=== PATIENT | male | born 1995 | race Caucasian/White ===

== ENCOUNTER → 2022-05-24 10:56 | Outpatient (BNVA) | payer OTHER, SELFPAY | PROVIDERS: Visit Provider Physician Assistant Medical | DX: T63.481A Toxic effect of venom of other arthropod, accidental (unintentional), initial encounter (principal) | CPT/HCPCS: 99203 ==

== ENCOUNTER 2022-05-24 12:25 | Emergency (ER) | payer OTHER, SELFPAY ==
[2022-05-24 12:36] VITALS: BP 143/92; PULSE 76; RESP 18; TEMP 36.9; O2SAT 98; BMI 44.6
--- NOTE | 2022-05-24 15:13 | PC.NURSE ---
pt approached this RN stating I feel like my finger is going to explode or something . Finger is swollen, but mild to moderately. Color is light pink. Provider (Edy SHAH) aware.
--- NOTE | 2022-05-24 16:36 | ED.GENADULT ---
HPI - General Adult General Chief complaint: General Medical Stated complaint: Bee sting in index finger sent by work connection Time Seen by Provider: 05/24/22 15:38 Source: patient Mode of arrival: ambulatory Limitations: no limitations History of Present Illness HPI narrative: Patient presents to the emergency department from work connection/[facility] [employer]. Patient states that he may have been stung by a bee to the lateral side of the right index finger earlier this morning, felt a sudden burning sensation then developed swelling. No prior known allergies. He developed swelling to the finger extending into dorsum of the hand. He states that he has no sensation to the finger. Referred from work connection to to concern for impaired circulation. He states he received 2 tablets of Benadryl while there. Related Data Previous Rx's Medication Instructions Recorded prednisone 20 mg tablet 40 mg PO DAILY 3 days #6 tabs 05/24/22 Allergies Allergy/AdvReac Type Severity Reaction Status Date / Time lentils [LENTILS] Allergy Unknown ANAPHYLAXIS Verified 05/24/22 12:36 Review of Systems Review of Systems: Constitutional: No fever, chills Skin: No rash or itching. Cardiovascular: No chest pain, chest pressure or chest discomfort. No palpitations Respiratory: No shortness of breath, cough or sputum production. Gastrointestinal: No nausea, vomiting or diarrhea. No abdominal pain Musculoskeletal: Hand as noted in HPI Yes all other systems are reviewed and are negative PMFSH Past Medical History Attestation statement: The following information was validated with the patient. Source: old records reviewed Social History Social History Advance Directives: No Advance Directives Information Provided: Yes Physical Exam ED Vital Signs: Vital Signs - 24 hr 05/24/22 12:36 Temperature 98.5 F Pulse Rate 76 Respiratory Rate 18 Blood Pressure 143/92 H Pulse Oximetry 98 Oxygen Delivery Method Room Air BMI result Body Mass Index 44.6 Appearance: Alert.?Oriented to person, place and time. No acute distress.?Normal affect. ENT: Pharynx normal.?? Neck: Normal inspection.? Neck supple.?? CVS: Heart sounds normal. Normal heart rate and rhythm.? Pulses normal.?? Respiratory: No respiratory distress.? Lung sounds clear to auscultation bilaterally?? Abdomen: Soft and non-tender. Normoactive bowel sounds. Skin: Skin warm and dry.? Normal skin color.? Extremities: No lower extremity edema.? Diffuse swelling to the right index finger, impaired sensation, inability to flex the finger it is maintained in full extension, very mild localized swelling and pain to the dorsum of the hand at the base of the 2nd digit. Digit/hand feels warm, cap refill < 3, color is normal Neuro: Moves all extremities spontaneously. Sensation intact bilaterally. No motor deficits Ambulates with normal steady gait. Course Course Course Narrative: Patient is a 26 old male with no significant past medical history presents emergency department for evaluation after a possible bee sting to the right index finger. Vital signs are stable, no cardiopulmonary abnormality, no apparent distress. At the time of this exam, there is notable swelling to digit, however color is normal, cap refill is normal. He is unable to flex the finger, and has subjective loss of sensation to the distal tip of the digit. At this time circulation appears intact. Not consistent with tenosynovitis. Discussed this case with ED attending Dr. Leblanc, who also examined the patient and agrees with plan of care. Benadryl, ice, elevation, prednisone, follow-up with hand specialist, discussed worrisome signs and symptoms to return back to the emergency department for. All questions were answered, and patient was discharged home in stable condition. Medical Decision Making Medical Records Medical records reviewed: Yes I reviewed the patient's medical records. Discharge Plan Discharge Clinical Impression: Bee sting reaction Patient Disposition: Home, Self-Care Instructions: Insect Bite or Sting (ED) Additional Instructions: Keep the finger splint in place, elevate your arm/hand above the level of your chest. Apply ice for 10-15 minutes multiple times daily. Benadryl 25mg every 6 hours until improvement. Prednisone daily, take with food. Return with any new or significantly worsening [place] symptoms or concerns Follow-up with hand specialist you will need to contact their office to schedule an appointment. Prescriptions: New prednisone 20 mg tablet 40 mg PO DAILY 3 Days Qty: 6 0RF Referrals: Natalia Martinez MD [Physician] - Stand Alone Forms: Work/School Release Interventions: ED Discharge Assessment Last Done: 05/24/22 17:21 Discharge Date/Time: 05/24/22 17:22
== END 2022-05-24 17:22 | disposition home or self-care (01) ==
PROVIDERS: Emergency Provider Internal Medicine
DX: T63.441A Toxic effect of venom of bees, accidental (unintentional), initial encounter (principal); M79.89 Other specified soft tissue disorders; Y92.239 Unspecified place in hospital as the place of occurrence of the external cause
CPT/HCPCS: 29130; 99282; 99283